=== PATIENT | female | born 1940 | race Caucasian/White ===

== ENCOUNTER → 2016-09-17 | Outpatient (CLI) | payer MEDICARE, OTHER | END | disposition home or self-care (01) | LOC: GMAH 12:36 | PROVIDERS: ATTEND Family Medicine | DX: E03.9 Hypothyroidism, unspecified (principal); M81.0 Age-related osteoporosis without current pathological fracture ==

== ENCOUNTER → 2016-11-06 | Outpatient (CLI) | payer MEDICARE, OTHER | END | disposition home or self-care (01) | LOC: GMAH 12:10 | PROVIDERS: ATTEND Family Medicine | DX: E53.8 Deficiency of other specified B group vitamins (principal); R53.82 Chronic fatigue, unspecified ==

== ENCOUNTER → 2017-10-29 | Outpatient (CLI) | payer MEDICARE, OTHER | LOC: GMAH 10:56 | PROVIDERS: ATTEND Family Medicine | DX: E03.9 Hypothyroidism, unspecified (principal); E55.9 Vitamin D deficiency, unspecified ==

== ENCOUNTER → 2017-12-16 | Outpatient (CLI) | payer MEDICARE, OTHER | LOC: GMAH 10:46 | PROVIDERS: ATTEND Family Medicine | DX: E55.9 Vitamin D deficiency, unspecified (principal) ==

== ENCOUNTER 2018-01-04 14:14 | Emergency (ER) | payer MEDICARE, OTHER ==
[2018-01-04 14:23] VITALS: TEMP 98
[2018-01-04] MEDS ORDERED: ASPIRIN TABLET 325 MG TAB PO ONE (14:23)
[2018-01-04] MEDS ORDERED: SODIUM CHLORIDE 0.9% (FLUSH) 10 ML SYG IV PRN (14:23)
--- NOTE | 2018-01-04 14:50 | RAD ---
EXAM DESCRIPTION: Chest,1 View CLINICAL HISTORY: 77 years Female, confusion COMPARISON: None. IMPRESSION: The heart is enlarged, without failure. Large air-fluid level of the base of the mediastinum, likely from a large hiatal hernia. The lungs are hyperexpanded. There is no confluent airspace consolidation, pleural effusion, or pneumothorax. No acute osseous abnormality. Electronically signed by: Ephraim Cat MD 01/04/2018 2:48 PM CDT
--- NOTE | 2018-01-04 14:56 | CT ---
EXAM DESCRIPTION: Head. CT head without contrast. CLINICAL HISTORY: acute confusion. Altered mental status. COMPARISON: 04/20/2009 TECHNIQUE: Multiple axial images of the head without contrast. Multiplanar reformatted images. This exam was performed according to our departmental dose-optimization program, which includes automated exposure control, adjustment of the mA and/or kV according to patient size and/or use of iterative reconstruction technique. FINDINGS: There is no CT evidence of intracranial hemorrhage, mass effect, or large territory infarction. Moderate generalized volume loss. Moderate patchy supratentorial white matter hypodensities. There are no abnormal extra-axial fluid collections. Calcific plaque in the visualized arteries. There is no acute calvarial defect. The visualized paranasal sinuses and the mastoids are clear. IMPRESSION: 1. No CT evidence of an acute intracranial abnormality. If there is concern for an acute or subacute infarct, consider follow-up MRI. 2. Advanced senescent changes. Electronically signed by: Ephraim Cat MD 01/04/2018 2:55 PM CDT
--- NOTE | 2018-01-04 16:43 | ED.PDOC ---
History of Present Illness - General Chief Complaint: Neuro Symptoms/Deficits Stated Complaint: acute confusion Time Seen by Provider: 01/04/18 14:28 Source: patient, family Exam Limitations: no limitations - History of Present Illness Initial Comments: PT BROUGHT TO THE ED BY EMS FOR ACUTE CONFUSION. ACCORDING TO FAMILY PATIENT ARRIVED AT [facility] AND BECAME CONFUSED TO HOW SHE GOT THERE OR WHY SHE WAS THERE. PT HAS NO RECOLLECTION OF SEVERAL EVENTS LEADING UP TO TODAYS VISIT ACCORDING TO FAMILY. Associated Symptoms: confusion Allergies/Adverse Reactions: Allergies Penicillins Allergy (Mild, Verified 12/23/14 17:34) Hives Home Medications: Ambulatory Orders Levothyroxine Sodium [Synthroid] 50 mcg PO DAILY 12/23/14 Lisinopril 10 mg PO AC 01/04/18 Review of Systems - Review of Systems Constitutional: Denies: chills, fever EENTM: Denies: nose congestion, throat swelling Respiratory: Denies: cough, short of breath Cardiology: Denies: chest pain, palpitations, syncope Gastrointestinal/Abdominal: Denies: diarrhea, nausea, vomiting Genitourinary: Denies: dysuria, frequency, hematuria Musculoskeletal: Denies: back pain, muscle pain Skin: Denies: dryness, lesions Neurological: Denies: numbness, paresthesia Endocrine: States: no symptoms reported Past Medical History (General) - Patient Medical History Hx Seizures: No Hx Stroke: No Hx Dementia: No Hx Asthma: No Hx of COPD: No Hx Cardiac Disorders: No Hx Congestive Heart Failure: No Hx Pacemaker: No Hx Hypertension: Yes Hx Thyroid Disease: No Hx Diabetes: No Hx Gastroesophageal Reflux: No Hx Renal Disease: No Hx Cancer: No Hx of HIV: No Hx Hepatitis C: No Hx MRSA: No Surgical History: appendectomy, tonsillectomy, Hysterectomy - Vaccination History Hx Tetanus, Diphtheria Vaccination: No Hx Influenza Vaccination: No Hx Pneumococcal Vaccination: No Immunizations Up to Date: No - Social History Hx Tobacco Use: No Hx Chewing Tobacco Use: No Hx Alcohol Use: Yes - wine daily Hx Substance Use: No Hx Substance Use Treatment: No Hx Depression: No Feels Threatened In Home Enviroment: No Feels Threatened In a Relationship: No Hx Physical Abuse: No Hx Emotional Abuse: No Hx Suspected Abuse: No - Female History Patient is a Female of Child Bearing Age (10 -59 yrs old): No Patient : No Family Medical History - Family History Father Living Status: Hx Family Asthma: No Hx Family Congestive Heart Failure: No Hx Family Stroke: Yes Physical Exam - Physical Exam General Appearance: Alert, Comfortable, No apparent distress, Well Developed, Well Groomed, Well Hydrated Eye Exam: bilateral normal ENT Exam: hearing grossly normal Neck: supple, normal inspection Respiratory: lungs clear, normal breath sounds, no respiratory distress Cardiovascular/Chest: regular rate, rhythm, no murmur Gastrointestinal/Abdominal: non tender, soft Back Exam: normal inspection Extremities Exam: non-tender, normal range of motion Mental Status: alert, other - ORIENTED X 2. 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 PT IS STARTING TO RECALL SOME EVENTS LEADING UP TO TODAYS VISIT. 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 PT REVEALS THAT HER MOTHER WAS DIAGNOSED WITH ALZHEIMERS AT AROUND THE SAME AGE. I OFFERED OVERNIGHT OBSERVATION, HOWEVER PATIENT WISHES TO GO HOME. HER SISTER AGREES TO STAY WITH PATIENT OVERNIGHT AND PT AGREES TO FOLLOW UP WITH DR. ZEINAB MICHELLE. - Results/Orders Results/Orders: Laboratory Tests 01/04/18 01/04/18 01/04/18 14:34 14:55 14:55 WBC 8.7 RBC 4.82 Hgb 13.9 Hct 41.2 MCV 85.5 MCH 28.8 MCHC 33.7 RDW 15.4 H Plt Count 248 MPV 9.0 Absolute Neuts (auto) 5.60 Absolute Lymphs (auto) 2.30 Absolute Monos (auto) 0.60 Absolute Eos (auto) 0.10 Absolute Basos (auto) 0.10 Neutrophils % 64.5 Lymphocytes % 26.4 Monocytes % 6.4 Eosinophils % 1.4 Basophils % 1.3 PT INR PTT (SP) Sodium 138 Potassium 4.4 Chloride 103 Carbon Dioxide 25 Anion Gap 14.4 BUN 21 H Creatinine 1.12 BUN/Creatinine Ratio 18.8 POC Glucose 80 Random Glucose 109 H Serum Osmolality 279.2 Calcium 9.9 Total Bilirubin 0.2 AST 22 ALT 15 Alkaline Phosphatase 69 Creatine Kinase 41 CK-MB (CK-2) 1.0 CK-MB (CK-2) % 2.44 Troponin I 0.01 Serum Total Protein 7.3 Albumin 4.1 Globulin 3.2 Albumin/Globulin Ratio 1.3 Urine Color Urine Appearance Urine pH Ur Specific [place] Urine Protein Urine Glucose (UA) Urine Ketones Urine Blood Urine Nitrite Urine Bilirubin Urine Urobilinogen Ur Leukocyte Esterase Urine RBC Urine WBC Ur Epithelial Cells Urine Bacteria 01/04/18 01/04/18 14:55 15:40 WBC RBC Hgb Hct MCV MCH MCHC RDW Plt Count MPV Absolute Neuts (auto) Absolute Lymphs (auto) Absolute Monos (auto) Absolute Eos (auto) Absolute Basos (auto) Neutrophils % Lymphocytes % Monocytes % Eosinophils % Basophils % PT 10.8 INR 0.930 PTT (SP) 30.4 Sodium Potassium Chloride Carbon Dioxide Anion Gap BUN Creatinine BUN/Creatinine Ratio POC Glucose Random Glucose Serum Osmolality Calcium Total Bilirubin AST ALT Alkaline Phosphatase Creatine Kinase CK-MB (CK-2) CK-MB (CK-2) % Troponin I Serum Total Protein Albumin Globulin Albumin/Globulin Ratio Urine Color Yellow Urine Appearance Clear Urine pH 7.5 Ur Specific [place] 1.020 Urine Protein Negative Urine Glucose (UA) Negative Urine Ketones Negative Urine Blood Trace-intact H Urine Nitrite Negative Urine Bilirubin Negative Urine Urobilinogen 0.2 Ur Leukocyte Esterase Negative Urine RBC 1-3 Urine WBC 0-1 Ur Epithelial Cells 0-1 Urine Bacteria 0 - EKG/XRAY/CT EKG: Sinus - @87BPM WITH SINUS ARRHYTHMIA, NL INTERVALS, NL AXIS, no ST T wave changes - NO OLD EKG FOR COMPARISON XRAY: chest - HIATAL HERNIA PER RAD CT: HEAD: ADVANCED SENESCENT CHANGES PER RAD CT Ordered: Yes CT Interpretation Call Back: No Departure - Departure Clinical Impression: Acute confusional state Time of Disposition: 16:52 Disposition: Discharge to Home or Self Care Condition: Good Departure Forms: ED Discharge - Pt. Copy, Patient Portal Self Enrollment Instructions: Delirium (Confusion) (DC) Referrals: J Carlos Oconnor MD [Primary Care Provider] - 1-2 Days Home Medications: Ambulatory Orders Levothyroxine Sodium [Synthroid] 50 mcg PO DAILY 12/23/14 Lisinopril 10 mg PO AC 01/04/18
[2018-01-04 17:50] VITALS: BP 144/57; O2SAT 96
== END 2018-01-04 17:50 | disposition home or self-care (01) ==
LOC: ER 14:14
DX: R41.0 Disorientation, unspecified (principal); I49.9 Cardiac arrhythmia, unspecified; I10 Essential (primary) hypertension; K44.9 Diaphragmatic hernia without obstruction or gangrene; Z88.0 Allergy status to penicillin

== ENCOUNTER 2018-04-18 21:26 | Emergency (ER) | payer MEDICARE, OTHER ==
--- NOTE | 2018-04-18 21:45 | ED.PDOC ---
History of Present Illness - General Chief Complaint: GI Problem Stated Complaint: reflux, diarrhea Time Seen by Provider: 04/18/18 21:33 Information Source: patient Exam Limitations: no limitations - History of Present Illness Initial Comments: Molly Chandra 77 y/o female with history of GE reflux s/p fundoplication brought by friend with nausea and watery diarrhea which started at noon today and not getting better.Denies abdominal pain ,dysuria,hematemesis,vomiting. Abdominal Pain Onset Location: other - NO Abdominal pains Pain Radiation: no radiation Timing/Duration: 4-6 hours Improving Factors: nothing Worsening Factors: eating Associated Symptoms: other - see hpi Review of Systems - Review of Systems Constitutional: States: no symptoms reported EENTM: States: no symptoms reported Respiratory: States: no symptoms reported Cardiology: States: no symptoms reported Gastrointestinal/Abdominal: States: see HPI Genitourinary: States: no symptoms reported Musculoskeletal: States: no symptoms reported Skin: States: no symptoms reported Neurological: States: no symptoms reported Past Medical History (General) - Patient Medical History Hx Seizures: No Hx Stroke: No Hx Dementia: No Hx Asthma: No Hx of COPD: No Hx Cardiac Disorders: No Hx Congestive Heart Failure: No Hx Pacemaker: No Hx Hypertension: Yes Hx Thyroid Disease: Yes Hx Diabetes: No Hx Gastroesophageal Reflux: Yes Hx Renal Disease: No Hx Cancer: No Hx of HIV: No Hx Hepatitis C: No Hx MRSA: No Surgical History: tonsillectomy, other - fundoplication,hysterectomy - Vaccination History Hx Tetanus, Diphtheria Vaccination: No Hx Influenza Vaccination: No Hx Pneumococcal Vaccination: No - Social History Hx Tobacco Use: No Hx Chewing Tobacco Use: No Hx Alcohol Use: Yes - wine daily Hx Substance Use: No Hx Substance Use Treatment: No Hx Depression: No Hx Physical Abuse: No Hx Emotional Abuse: No Hx Suspected Abuse: No - Activities of Daily Living Patient Lives Alone: No Grooming Ability: Independent Eating (Feeding) Ability: Independent Toileting Ability: Independent - Female History Patient : No Family Medical History - Family History Father Living Status: Hx Family Asthma: No Hx Family Congestive Heart Failure: No Hx Family Stroke: Yes - dad Hx Family Cancer: Yes - mom-breast Hx Family;Other: Dementia -mom Physical Exam - Physical Exam General Appearance: Alert, Comfortable, No apparent distress Eyes, Ears, Nose, Throat Exam: normal ENT inspection, pharynx normal Neck: non-tender, full range of motion, supple, normal inspection Respiratory: lungs clear, normal breath sounds, no respiratory distress Cardiovascular/Chest: normal peripheral pulses, regular rate, rhythm, no gallop , no murmur Peripheral Pulses: No deficit Gastrointestinal/Abdominal: non tender, soft Back Exam: no CVA tenderness, no vertebral tenderness Extremity: no pedal edema, no calf tenderness Neurologic: alert, oriented x 3 Skin Exam: normal color, warm/dry Progress - Progress Progress: 04/18/18 21:58 04/18/18 21:48 IV Care:Saline Lock per Protoc QSHIFT CARDIAC PANEL,ER Stat HEPATIC FUNCTION PANEL Stat Sodium Chloride 0.9% 500Ml [NS 500ml] 500 ml IVS ONCE URINALYSIS Stat 04/18/18 21:49 CLOSTRIDIUM DIFFICILE AG/TOXIN Urgent 04/18/18 21:55 LIPASE Stat Vital Signs - 8 hr 04/18/18 21:39 Temperature 99.2 F Pulse Rate [rt] 100 H Respiratory 20 Rate Blood Pressure 149/85 [Right Arm] O2 Sat by Pulse 97 Oximetry - Results/Orders Results/Orders: 04/18/18 21:48 IV Care:Saline Lock per Protoc QSHIFT Laboratory Results - last 24 hr 04/18/18 04/18/18 04/18/18 22:01 22:17 22:17 WBC 13.7 H RBC 4.99 Hgb 14.3 Hct 44.1 MCV 88.4 MCH 28.7 MCHC 32.5 L RDW 15.4 H Plt Count 238 MPV 8.6 Absolute Neuts (auto) 12.30 H Absolute Lymphs (auto) 0.50 L Absolute Monos (auto) 0.70 Absolute Eos (auto) 0.10 Absolute Basos (auto) 0.10 Neutrophils % 89.6 H Lymphocytes % 4.0 L Monocytes % 4.9 Eosinophils % 1.1 Basophils % 0.4 PT 9.3 INR 0.93 PTT (SP) 24.3 Sodium 137 Potassium 4.1 Chloride 105 Carbon Dioxide 23 Anion Gap 13.1 BUN 18 Creatinine 0.86 BUN/Creatinine Ratio 20.9 H Random Glucose 140 H Serum Osmolality 278.0 Calcium 9.0 Magnesium 1.8 Total Bilirubin 0.3 Direct Bilirubin < 0.1 Indirect Bilirubin 0.2 AST 26 ALT 17 Alkaline Phosphatase 69 Creatine Kinase 41 CK-MB (CK-2) 1.3 CK-MB (CK-2) % Not Reportable Troponin I < 0.02 Serum Total Protein 6.9 Albumin 3.8 Lipase 33 Urine Color Yellow Urine Appearance Clear Urine pH 5.0 Ur Specific [place] 1.025 Urine Protein Negative Urine Glucose (UA) Negative Urine Ketones Negative Urine Blood Moderate H Urine Nitrite Negative Urine Bilirubin Negative Urine Urobilinogen 0.2 Ur Leukocyte Esterase Trace H Urine RBC 1-3 Urine WBC 1-3 Ur Epithelial Cells 1-3 Amorphous Sediment Trace Urine Bacteria Rare Urine Mucus Trace Discuss all test result with patient needing to call her surgeon who performed her GI surgery in 2002 at [facility];Friend will stay with her tonight - EKG/XRAY/CT Xray Comments: unchanged from CXR December 2017 CT Ordered: Yes - large paraeophageal hernia no abscess ,gas in mediastinum or perforation Departure - Departure Clinical Impression: Nausea, Paraesophageal hernia Diarrhea Qualifiers: Diarrhea type: unspecified type Qualified Code(s): R19.7 - Diarrhea, unspecified Time of Disposition: 00:32 Disposition: Discharge to Home or Self Care Condition: Fair Departure Forms: ED Discharge - Pt. Copy, Patient Portal Self Enrollment Instructions: Fundoplication, Laparoscopic Surgery, Fundoplication, Laparoscopic Surgery (DC) Diet: other - Smal frequent meal ;Avoid greasy ,spicy foods and salads;may eat steamed veggies Referrals: J Carlos Oconnor MD [Primary Care Provider] - 1-2 Weeks Prescriptions: Ondansetron Odt [Zofran ODT] 8 mg PO Q8HRS PRN #12 tab PRN Reason: Nausea Pantoprazole Tablet [Protonix] 40 mg PO ACBK #60 tab Home Medications: Ambulatory Orders Levothyroxine Sodium [Synthroid] 50 mcg PO DAILY 12/23/14 Lisinopril 10 mg PO AC 01/04/18 Ondansetron Odt [Zofran ODT] 8 mg PO Q8HRS PRN #12 tab 04/19/18 Pantoprazole Tablet [Protonix] 40 mg PO ACBK #60 tab 04/19/18 Additional Instructions: Follow up with primary Md in am 19 Apr 2018 ;Return to emergency room if symptoms worsens;Continue with all home medications
[2018-04-18] MEDS: PANTOPRAZOLE SODIUM IV 40 MG VIAL IV ONE (22:17)
[2018-04-18] MEDS: ONDANSETRON INJ 4 MG/2 ML VIAL IV ONE ×2 (22:17→23:51)
[2018-04-18] MEDS: SODIUM CHLORIDE 0.9% 500ML 500 ML IVS ONE ×2 (22:17→23:50)
--- NOTE | 2018-04-18 22:52 | CT ---
NONCONTRAST ABDOMEN AND PELVIC CT EXAMINATION. HISTORY: Nausea and vomiting. Abdominal pain and distention. Patient is post Dimitri fundoplication. COMPARISONS: No comparison CT examinations are available. Compared to the chest radiograph of January 04, 2018. PROCEDURE: Using helical technique, thin section axial images were performed through the abdomen and pelvis without the administration of intravenous or oral contrast material. FINDINGS: Large paraesophageal gastric hiatal hernia with approximately one third of the stomach herniated into the thoracic cavity appears unchanged. No mediastinal gas or upper abdominal abscess. No evidence of perforated peptic ulcer disease. The adrenal glands, kidneys, renal collecting systems, ureters and urinary bladder are grossly normal on this noncontrast examination. Sigmoid diverticulosis without evidence of diverticulitis. No evidence of appendicitis, inflammatory bowel disease, bowel obstruction, extraluminal bowel gas or retroperitoneal hemorrhage. No ascites, free pelvic fluid or evidence of intra-abdominal abscess on this noncontrast examination. Remote hysterectomy. The fluid-filled gallbladder is grossly normal on this noncontrast examination. The liver, spleen, pancreas, stomach and duodenum are grossly normal on this noncontrast examination. Mild atherosclerotic calcification in the abdominal aorta without aneurysm. Greatest AP diameter of the infrarenal abdominal aorta measures 1.6 cm. Bones appear normal for age. IMPRESSION: 1. Large paraesophageal gastric hiatal hernia without evidence of perforation, gas in the lower mediastinum or adjacent abscess. 2. Sigmoid colon diverticulosis without diverticulitis. If clinical concern persists, post intravenous contrast and post oral contrast abdomen and pelvic CT examination should be performed for further evaluation. This exam was performed according to our departmental dose-optimization program, which includes automated exposure control, adjustment of the mA and/or kV according to patient size and/or use of iterative reconstruction technique. Electronically signed by: Gabriel Garcia MD 04/18/2018 10:50 PM CDT
[2018-04-18] MEDS: SODIUM CHLORIDE 0.9% 1000ML 500 ML IVS ONE (23:50)
[2018-04-19] MEDS: ONDANSETRON ODT (ER DISP) 8 MG TAB PO ONE (00:45)
[2018-04-19 00:51] VITALS: BP 149/72; TEMP 98.4; O2SAT 96
== END 2018-04-19 00:51 | disposition home or self-care (01) ==
LOC: ER 21:26
DX: K44.9 Diaphragmatic hernia without obstruction or gangrene (principal); R11.0 Nausea; R19.7 Diarrhea, unspecified; I10 Essential (primary) hypertension; E07.9 Disorder of thyroid, unspecified; K21.9 Gastro-esophageal reflux disease without esophagitis
CPT/HCPCS: 36415; 74176; 80048; 80076; 81001; 82550; 82553; 83690; 84484; 85025; 85610; 85730; 87324; 87449; J2405; J7030; J7040

== ENCOUNTER 2018-08-13 20:09 | Emergency (ER) | payer MEDICARE, OTHER ==
[2018-08-13] MEDS ORDERED: PANTOPRAZOLE SODIUM IV 40 MG VIAL IV ONE (21:11)
--- NOTE | 2018-08-13 21:15 | ED.PDOC ---
History of Present Illness - General Chief Complaint: Abdominal Pain Stated Complaint: Abdominal discomfort, nausea, diarrhea Time Seen by Provider: 08/13/18 21:07 Information Source: patient - History of Present Illness Initial Comments: SHE HAD A VALENTINA FUNDUPLICATION YEARS AGO AND NOW EVIDENTLY IT HAS COME LOOSE. SHE COMES HERE BELCHING AND C/O EPIGASTRIC PAIN. SHE ALSO VOICES THAT SHE STARTED WITH ABDOMINAL PAIN AND THEN DEVELOPED DIARRHEA. Abdominal Pain Onset Location: epigastric Pain Radiation: no radiation Quality: aching, dull Timing/Duration: 4-6 hours Improving Factors: immobilization Worsening Factors: nothing Associated Symptoms: other - [place]CHING Review of Systems - Review of Systems Constitutional: States: no symptoms reported EENTM: States: no symptoms reported Respiratory: States: no symptoms reported Cardiology: States: chest pain Gastrointestinal/Abdominal: States: abdominal pain, diarrhea Genitourinary: States: no symptoms reported Musculoskeletal: States: no symptoms reported Skin: States: no symptoms reported Neurological: States: no symptoms reported Endocrine: States: no symptoms reported Past Medical History (General) - Patient Medical History Hx Seizures: No Hx Stroke: No Hx Dementia: No Hx Asthma: No Hx of COPD: No Hx Cardiac Disorders: No Hx Congestive Heart Failure: No Hx Pacemaker: No Hx Hypertension: Yes Hx Thyroid Disease: Yes Hx Diabetes: No Hx Gastroesophageal Reflux: Yes Hx Renal Disease: No Hx Cancer: No Hx of HIV: No Hx Hepatitis C: No Hx MRSA: No Surgical History: other - Vaccination History Hx Tetanus, Diphtheria Vaccination: No Hx Influenza Vaccination: No Hx Pneumococcal Vaccination: No - Social History Hx Tobacco Use: No Hx Chewing Tobacco Use: No Hx Alcohol Use: No Hx Substance Use: No Hx Substance Use Treatment: No Hx Depression: No Hx Physical Abuse: No Hx Emotional Abuse: No Hx Suspected Abuse: No - Female History Patient : No Family Medical History - Family History Father Living Status: Hx Family Asthma: No Hx Family Congestive Heart Failure: No Hx Family Stroke: Yes - dad Hx Family Cancer: Yes - mom-breast Hx Family;Other: Dementia -mom Physical Exam - Physical Exam General Appearance: Alert, Obvious distress, Well Developed, Well Groomed Eyes, Ears, Nose, Throat Exam: PERRL/EOMI, normal ENT inspection Neck: non-tender, full range of motion, supple Respiratory: chest non-tender, lungs clear, normal breath sounds, no respiratory distress, no accessory muscle use Cardiovascular/Chest: normal peripheral pulses, regular rate, rhythm, no edema, no gallop Gastrointestinal/Abdominal: normal bowel sounds, distended, rebound Rectal Exam: deferred Back Exam: normal inspection, no vertebral tenderness Extremity: normal range of motion, non-tender, normal inspection Neurologic: no motor/sensory deficits, oriented x 3 Skin Exam: normal color Progress - Progress Progress: 08/13/18 22:59 ABDOMINAL FILM: LARGE HIATAL HERNIA, RADIOLOGIST CALLED AND WAS CONCERNED FOR VOLVULOUS. RECOMMENDED CT ABDOMEN AND PELVIS. 08/13/18 23:00 CT ABDOMEN AND PELVIS: NO VOLVULOUS. THE SPLENIC FLEXURE AND DESCENDING COLON CONSISTENT WITH COLITIS. Departure - Departure Clinical Impression: Colitis, Hiatal hernia Time of Disposition: 23:02 Disposition: Discharge to Home or Self Care Condition: Good Departure Forms: ED Discharge - Pt. Copy, Patient Portal Self Enrollment Instructions: Viral Gastroenteritis, Adult (DC) Referrals: J Carlos Oconnor MD [Primary Care Provider] - 1-2 Weeks Prescriptions: Simethicone [Phazyme Maximum Strength] 250 mg PO Q6HRS #20 cap Ciprofloxacin [Cipro] 500 mg PO BID #20 tab Home Medications: Ambulatory Orders Levothyroxine Sodium [Synthroid] 50 mcg PO DAILY 12/23/14 Lisinopril 10 mg PO AC 01/04/18 Ondansetron Odt [Zofran ODT] 8 mg PO Q8HRS PRN #12 tab 04/19/18 Pantoprazole Tablet [Protonix] 40 mg PO ACBK #60 tab 04/19/18 Ciprofloxacin [Cipro] 500 mg PO BID #20 tab 08/13/18 Simethicone [Phazyme Maximum Strength] 250 mg PO Q6HRS #20 cap 08/13/18
--- NOTE | 2018-08-13 21:42 | RAD ---
EXAM DESCRIPTION: Abdomen Series CLINICAL HISTORY: 78 years Female ABDOMINAL PAIN COMPARISON: None TECHNIQUE: PA view of the chest and supine and upright views of the abdomen are obtained. FINDINGS: PA view of the chest demonstrates a normal heart and pulmonary vascularity. There is a large hiatal hernia distended with air and measuring 10.7 cm transversely by 9.3 cm CC. The entire stomach may be intrathoracic. There is diffuse interstitial prominence. No focal consolidation No pneumothoraces or pleural effusions are seen. Supine and upright views of the abdomen show no evidence of free air. The small bowel and colon show no evidence of obstruction. There are no abnormal intra-abdominal calcifications other than probable tiny phleboliths in the pelvis. There is no organomegaly. The psoas margins are sharp The bones appear demineralized. There are no discernible acute fractures or areas of osseous destruction or blastic change. There are mild degenerative changes in the spine and hips. IMPRESSION: Nonspecific interstitial prominence may be acute or chronic as from interstitial edema or an acute lower respiratory tract viral illness versus fibrosis. There is no evidence of acute consolidative pneumonia. Gaseous distention of the herniated stomach can sometimes indicate outlet obstruction from volvulus. If pain is in the upper abdomen, i.e. epigastric, recommend CT abdomen and pelvis. Remainder of findings as described above. Electronically signed by: Lynn De Leon MD 08/13/2018 9:39 PM [facility]
[2018-08-13] MEDS ORDERED: ALUM & MAG HYDROX-SIMETHICONE 30 ML, LIDOCAINE VISCOUS 2% 15 ML PO ONE ×2 (21:46)
[2018-08-13] MEDS ORDERED: LIDOCAINE HCL 2% (MOUTH-THROAT) 15 ML UD ONE (21:46)
[2018-08-13] MEDS ORDERED: ALUM & MAG HYDROX-SIMETHICONE 30 ML UD ONE (21:46)
[2018-08-13 22:26] VITALS: TEMP 100
--- NOTE | 2018-08-13 22:38 | CT ---
EXAM DESCRIPTION: Abdomen/Pelvis w/Contrast CLINICAL HISTORY: 78 years Female abdominal pain COMPARISON: 04/18/2018 TECHNIQUE: Contiguous axial images obtained through the abdomen and pelvis following IV contrast. Reformatted images obtained. This exam was performed according to our department optimization program which includes automated exposure control, adjustment of the mA and/or kv according to patient size and/or use of iterative reconstruction technique. FINDINGS: Large hiatal hernia. Small adjacent lymph node is noted along the distal esophagus. Liver, spleen and pancreas are unremarkable. No adrenal masses. The kidneys appear unremarkable. No hydronephrosis. The gallbladder is visualized. No aneurysmal dilatation of the aorta. No bowel obstruction. The appendix is not seen. There is wall thickening in the splenic flexure and descending colon consistent with colitis. IMPRESSION: Findings consistent with colitis involving the splenic flexure and proximal descending colon. Changes May BE infectious or inflammatory Large hiatal hernia Electronically signed by: Shelbi Martinez MD 08/13/2018 10:35 PM [employer]
[2018-08-13] MEDS ORDERED: ONDANSETRON INJ 4 MG/2 ML VIAL IV ONE (22:41)
[2018-08-13] MEDS ORDERED: HYOSCYAMINE SULFATE 0.5 MG/ML VIAL IV ONE (22:52)
[2018-08-13] MEDS ORDERED: SIMETHICONE 80 MG TAB PO PRN (22:58)
[2018-08-13 23:48] VITALS: BP 166/93; O2SAT 95
== END 2018-08-13 23:15 | disposition home or self-care (01) ==
LOC: ER 20:09
DX: K52.9 Noninfective gastroenteritis and colitis, unspecified (principal); K44.9 Diaphragmatic hernia without obstruction or gangrene; K21.9 Gastro-esophageal reflux disease without esophagitis; I10 Essential (primary) hypertension; E07.9 Disorder of thyroid, unspecified; Z98.890 Other specified postprocedural states
CPT/HCPCS: 36415; 74019; 74177; 80053; 83690; 85025; 93005; J2405

== ENCOUNTER → 2019-04-29 | Outpatient (CLI) | payer MEDICARE, OTHER | LOC: GMA MATASK 10:19 | PROVIDERS: ATTEND Family Medicine | DX: I10 Essential (primary) hypertension (principal); E03.9 Hypothyroidism, unspecified ==

== ENCOUNTER → 2019-11-18 | Outpatient (CLI) | payer MEDICARE, OTHER | LOC: GMA MATASK 12:14 | PROVIDERS: ATTEND Family Medicine | DX: E03.9 Hypothyroidism, unspecified (principal); E78.2 Mixed hyperlipidemia ==

== ENCOUNTER → 2020-05-10 | Outpatient (CLI) | payer MEDICARE, OTHER | LOC: GMA MATASK 17:16 | PROVIDERS: ATTEND Family Medicine | DX: E03.9 Hypothyroidism, unspecified (principal) ==

== ENCOUNTER → 2020-06-06 | Outpatient (CLI) | payer MEDICARE, OTHER | LOC: GMA MATASK 11:05 | PROVIDERS: ATTEND Family Medicine | DX: E03.9 Hypothyroidism, unspecified (principal); E78.2 Mixed hyperlipidemia ==

== ENCOUNTER → 2020-07-24 | Outpatient (CLI) | payer MEDICARE, OTHER | LOC: GMA MATASK 11:30 | PROVIDERS: ATTEND Family Medicine | DX: E53.8 Deficiency of other specified B group vitamins (principal); E03.9 Hypothyroidism, unspecified ==

== ENCOUNTER → 2020-07-30 | Outpatient (CLI) | payer MEDICARE, OTHER | LOC: GMA MATASK 10:20 | PROVIDERS: ATTEND Family Medicine | DX: D50.9 Iron deficiency anemia, unspecified (principal); D51.9 Vitamin B12 deficiency anemia, unspecified; R53.83 Other fatigue ==